=== PATIENT | female | born 1995 | race Caucasian/White ===

== ENCOUNTER 2025-02-15 10:23 | Emergency (ER) | payer MEDICAID, OTHER ==
[~2025-02-15] VITALS: Ht 172.7 cm; Wt 77.5 kg
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
[2025-02-15 13:01] VITALS: BP 128/74; PULSE 94; RESP 18; TEMP 97.8; O2SAT 96
== END 2025-02-15 13:20 | disposition home or self-care (01) ==
LOC: EDSEX 10:23 → EDBD 10:23 → ER 10:23
DX: S16.1XXA Strain of muscle, fascia and tendon at neck level, initial encounter (principal); S39.012A Strain of muscle, fascia and tendon of lower back, initial encounter; Z88.6 Allergy status to analgesic agent; V43.52XA Car driver injured in collision with other type car in traffic accident, initial encounter; Y93.I9 Activity, other involving external motion; Y92.488 Other paved roadways as the place of occurrence of the external cause; Y99.8 Other external cause status
CPT/HCPCS: 72040; 72100